=== PATIENT | male | born 1950 | race Two or more races ===

== ENCOUNTER 2017-10-28 21:10 | Emergency (ER) | payer OTHER ==
[~2017-10-28] VITALS: Ht 177.8 cm; Wt 78.5 kg
[2017-10-28 21:48] LABS: HEMATOCRIT 38.7 % (38.0-50.0); HEMOGLOBIN 13.1 G/DL (12.5-16.6); MCH 26.8 PG (29.0-34.0); MCHC 33.9 G/DL (30.0-36.0); MCV 79.1 FL (86-99); PLATELET COUNT 261 K/uL (156-360); RBC DIS.WIDTH-CV 13.5 % (11.8-14.6); RBC DIS.WIDTH-SD 38.6 % (39-53); RED BLOOD COUNT 4.89 M/uL (4.00-5.50); WHITE BLOOD COUNT 13.7 K/uL (4.1-10.2)
[2017-10-28 22:01] LABS: ALBUMIN 4.1 g/dL (3.2-4.8); CHLORIDE 103 mEq/L (99-109); POTASSIUM 3.5 mEq/L (3.7-5.4); SODIUM 137 mEq/L (136-147)
[2017-10-28 22:04] LABS: GLUCOSE 328 mg/dL (70-99); TOTAL PROTEIN 7.8 g/dL (6.4-8.3)
[2017-10-28 22:06] LABS: TOTAL BILIRUBIN 0.3 mg/dL (0.0-1.0)
[2017-10-28 22:07] LABS: ALKALINE PHOSPHATASE 97 IU/L (3-129); CREATININE 1.2 mg/dL (0.6-1.3); GFR ESTIMATE (CALCULATED) > 59 mL/min/ (58.99-99999)
[2017-10-28 22:09] LABS: AST (GOT) 14 IU/L (2-34); DIRECT BILIRUBIN 0.1 mg/dL (0.0-0.3); UREA NITROGEN (BUN) 17 mg/dL (9-23)
[2017-10-28 22:10] LABS: ALT (GPT) 20 IU/L (3-49)
[2017-10-28 22:11] LABS: LIPASE 44 U/L (1.0-51.0)
[2017-10-28 22:17] LABS: TROP-I INTERPRETATION NEGATIVE; TROPONIN-I < 0.01 ng/mL (0.0-0.30)
[2017-10-28 23:59] LABS: APPEARANCE CLEAR ((CLEAR)); BILIRUBIN NEGATIVE; BLOOD NEGATIVE; COLOR YELLOW ((YELLOW)); GLUCOSE (STRIP) >=500; KETONES NEGATIVE; LEUKOCYTES NEGATIVE; NITRITE NEGATIVE; PROTEIN (STRIP) 30; UCUL ADDED? NO; UROBILINOGEN 0.2 MG/DL (0.2-1.0)
[2017-10-29] MEDS ORDERED: ZITHROMAX Z-PA250 MG PO (00:10)
[2017-10-29 00:38] VITALS: BP 117/83
[2017-10-29 00:49] LABS: SPECIFIC GRAVITY 1.058 (1.000-1.030)
== END 2017-10-28 23:34 | disposition home or self-care (01) ==
LOC: EME 21:10
PROVIDERS: Physician Assistant
DX: J40 Bronchitis, not specified as acute or chronic (principal); R10.11 Right upper quadrant pain; I10 Essential (primary) hypertension; E78.5 Hyperlipidemia, unspecified; E11.9 Type 2 diabetes mellitus without complications; Z86.73 Personal history of transient ischemic attack (TIA), and cerebral infarction without residual deficits
CPT/HCPCS: 71046; 74177; 80048; 80076; 81003; 83690; 84484; 85027; 93005; 99281; 99284; J1885; J7030